=== PATIENT | female | born 1955 | race Caucasian/White ===

== ENCOUNTER 2016-10-02 08:56 | Emergency (ER) | payer MEDICAID | END 2016-10-02 11:08 | disposition home or self-care (01) | LOC: ER 08:56 | DX: J44.0 Chronic obstructive pulmonary disease with (acute) lower respiratory infection (principal); J20.9 Acute bronchitis, unspecified; H66.002 Acute suppurative otitis media without spontaneous rupture of ear drum, left ear; M94.0 Chondrocostal junction syndrome [Tietze]; I10 Essential (primary) hypertension; Z79.899 Other long term (current) drug therapy; Z87.891 Personal history of nicotine dependence | CPT/HCPCS: 71020 ==